=== PATIENT | female | born 1985 | race Caucasian/White ===

== ENCOUNTER 2024-09-28 13:06 | Emergency (ER) | payer OTHER ==
[~2024-09-28] VITALS: Ht 157.5 cm; Wt 96.1 kg
[2024-09-28] MEDS ORDERED: SYNT25TA PO (13:15)
[2024-09-28] MEDS: KETOROLAC 60MG 2ML VIAL IM ONE (16:16)
[2024-09-28] MEDS ORDERED: CYCL-707 PO (17:38)
[2024-09-28] MEDS ORDERED: DICL75TA PO (17:38)
[2024-09-28] MEDS ORDERED: LIDO5DIS41 TD (17:38)
[2024-09-28 17:47] VITALS: BP 113/64; TEMP 97.7; O2SAT 100
== END 2024-09-28 17:52 | disposition home or self-care (01) ==
LOC: M ED 13:06
DX: S16.1XXA Strain of muscle, fascia and tendon at neck level, initial encounter (principal); S46.011A Strain of muscle(s) and tendon(s) of the rotator cuff of right shoulder, initial encounter; Y92.9 Unspecified place or not applicable; Y93.9 Activity, unspecified; Y99.0 Civilian activity done for income or pay; E03.9 Hypothyroidism, unspecified; F17.290 Nicotine dependence, other tobacco product, uncomplicated; Z79.899 Other long term (current) drug therapy
CPT/HCPCS: 72040; 73030; 96372; 99283; J1885

== ENCOUNTER → 2024-12-08 | Outpatient (RCR) | payer OTHER ==
[~2024-12-08] MED LIST: CYCL-707 PO; DICL75TA PO; LIDO5DIS41 TD; SYNT25TA PO
== END ==
LOC: M PT 11-13 13:55
PROVIDERS: ATTEND Physician Assistant
DX: M54.2 Cervicalgia (principal)

== ENCOUNTER → 2024-12-27 | Outpatient (CLI) | payer OTHER | LOC: M PLAIMG 11:48 | PROVIDERS: ATTEND Physician Assistant | DX: Z04.2 Encounter for examination and observation following work accident (principal); M54.2 Cervicalgia ==

== ENCOUNTER → 2025-01-08 | Outpatient (RCR) | payer OTHER | LOC: M PT 12-19 13:32 | PROVIDERS: ATTEND Physician Assistant | DX: M54.2 Cervicalgia (principal); M62.838 Other muscle spasm ==

== ENCOUNTER 2025-01-16 14:41 | Outpatient (RCR) | payer OTHER | END 2025-02-07 | LOC: M PT 14:41 | PROVIDERS: ATTEND Physician Assistant | DX: M54.2 Cervicalgia (principal); M62.838 Other muscle spasm ==

== ENCOUNTER 2025-04-12 10:07 | Day surgery (SDC) | payer OTHER ==
[~2025-04-12] VITALS: Ht 157.5 cm; Wt 94.1 kg
[~2025-04-12 10:07] MED LIST changes: +KETOROLAC 30 MG/ML 1 ML VIAL As Ordered ONE; +LIDO1ADH93 TD; -LIDO5DIS41 TD; +LIDOCAINE 2% 100 MG/5 ML SDV (FOR ANES.) As Ordered ONE; +METF-1157 PO; +MIDAZOLAM INJ 2 MG/2 ML VIAL As Ordered ONE; +ONDANSETRON 4MG 2ML VIAL As Ordered ONE; +PROPOFOL 1,000 MG/100 ML VIAL As Ordered ONE; +dexAMETHasone 4 MG/ML 1 ML VIAL As Ordered ONE
[2025-04-12] MEDS ORDERED: CLAR10CA3 PO (10:41)
[2025-04-12] MEDS ORDERED: LR 1,000 ML IV SCH (10:45)
[2025-04-12] MEDS ORDERED: dexmedeTOMIDine (4 MCG/ML) 200 MCG/50 ML BTL As Ordered ONE (12:26)
[2025-04-12] MEDS: SCOPOLAMINE 1MG TRANSDERMAL PATCH TOP ONE (13:00)
[2025-04-12] MEDS ORDERED: ROCURONIUM BROMIDE 50MG/5ML VIAL As Ordered ONE (13:12)
[2025-04-12] MEDS ORDERED: SUGAMMADEX SODIUM 500 MG/5 ML VIAL As Ordered ONE (13:45)
[2025-04-12] MEDS: METHYLENE BLUE 0.5% (5 MG/ML) 10 ML AMP As Ordered ONE (13:50)
[2025-04-12] MEDS ORDERED: ONDANSETRON 4MG 2ML VIAL IV PRN (14:15)
[2025-04-12] MEDS: HYDROMORPHONE HCL 0.5 MG/0.5 ML SYRINGE IV PRN (14:42)
[2025-04-12 16:05] VITALS: BP 121/65; TEMP 97; O2SAT 100
== END 2025-04-12 16:07 | disposition home or self-care (01) ==
LOC: M SDC 10:07
PROVIDERS: ATTEND Obstetrics & Gynecology
DX: N92.0 Excessive and frequent menstruation with regular cycle (principal); N94.6 Dysmenorrhea, unspecified; N97.1 Female infertility of tubal origin; E11.9 Type 2 diabetes mellitus without complications; E03.9 Hypothyroidism, unspecified; Z79.84 Long term (current) use of oral hypoglycemic drugs; Z79.890 Hormone replacement therapy; F17.290 Nicotine dependence, other tobacco product, uncomplicated; Z79.899 Other long term (current) drug therapy
CPT/HCPCS: 36415; 58558; 74018; 85014; 85018; 86850; 88305; J0665; J1171; J1885; J2250; J2405; J2765; J3010; Q9968

== ENCOUNTER 2025-07-31 15:51 | Emergency (ER) | payer OTHER ==
[~2025-07-31] VITALS: Ht 157.5 cm; Wt 95.5 kg
[~2025-07-31 15:51] MED LIST changes: +CLAR10CA3 PO; -KETOROLAC 30 MG/ML 1 ML VIAL As Ordered ONE; -LIDOCAINE 2% 100 MG/5 ML SDV (FOR ANES.) As Ordered ONE; -MIDAZOLAM INJ 2 MG/2 ML VIAL As Ordered ONE; -ONDANSETRON 4MG 2ML VIAL As Ordered ONE; -PROPOFOL 1,000 MG/100 ML VIAL As Ordered ONE; -dexAMETHasone 4 MG/ML 1 ML VIAL As Ordered ONE
[2025-07-31] MEDS ORDERED: ISOVUE-370 76% 100 ML VIAL As Ordered ONE (16:08)
[2025-07-31 16:29] LABS: BASO # 0.1 10^3/uL (0.0-0.2); BASO % 0.8 % (0.0-1.0); EOS # 0.2 10^3/uL (0.0-0.5); EOS % 2.7 % (0.0-3.0); LYMPH # 2.1 10^3/uL (1.5-5.0); LYMPH % 34.0 % (24.0-44.0); MONO # 0.3 10^3/uL (0.0-0.8); MONO % 4.9 % (2.0-8.0); NEUTROPHILS # 3.6 10^3/uL (1.5-8.5); NEUTROPHILS % 57.4 % (36.0-66.0); PLATELET COUNT, AUTOMATED 423 10^3/uL (150-450)
[2025-07-31 16:51] LABS: INR 0.91
[2025-07-31] MEDS: diphenhydrAMINE 50 MG/ML VIAL IV ONE (17:07)
[2025-07-31] MEDS: ACETAMINOPHEN *IV* 1,000 MG in IV 1 EA IV ONE (17:08)
[2025-07-31 19:02] VITALS: BP 122/69; TEMP 97.4; O2SAT 100
[2025-07-31] MEDS: MAG SULF 1GM/100ML (MAG RUN) 1 GM in IV 1 EA IV ONE (19:35)
[2025-07-31] MEDS: KETOROLAC 30 MG/ML 1 ML VIAL IV ONE (19:35)
[2025-07-31] MEDS ORDERED: GABA-1172 PO (20:26)
[2025-07-31] MEDS ORDERED: HOME MED LIST COMPLETE! XX SCH (20:30)
[2025-07-31 21:56] VITALS: BP 104/56; TEMP 97.4; O2SAT 99
== END 2025-07-31 21:59 | disposition home or self-care (01) ==
LOC: M ED 15:51
DX: G43.809 Other migraine, not intractable, without status migrainosus (principal); E11.9 Type 2 diabetes mellitus without complications; E03.9 Hypothyroidism, unspecified; Z79.84 Long term (current) use of oral hypoglycemic drugs; Z79.899 Other long term (current) drug therapy
CPT/HCPCS: 70450; 70496; 70498; 70551; 71045; 80047; 85025; 85610; 85730; 93005; 93041; 94760; 96365; 96366; 96375; 99285; J0131; J1200; J1885; J2765; J3475; Q9967